=== PATIENT | female | born 1955 | race Caucasian/White ===

== ENCOUNTER 2018-03-27 12:09 | Inpatient (IN) | payer MEDICARE, OTHER ==
[~2018-03-27] VITALS: Ht 162.6 cm; Wt 69.9 kg
[~2018-03-27 12:09] MED LIST: BUPIVACAINE/PF 0.5% ONE; ROCURONIUM 10MG/ML,5ML ONE
[2018-03-27] MEDS ORDERED: LACTATED RINGERS 1,000 ML IV SCH (12:51)
[2018-03-27] MEDS ORDERED: MIDAZOLAM 1 MG/ML, 2ML ONE ×2 (12:54→14:01)
[2018-03-27] MEDS ORDERED: FENTANYL PF 250 MCG/5ML ONE ×3 (12:54→16:26)
[2018-03-27] MEDS ORDERED: BUPIVACAINE/PF 0.5% ONE (13:17)
[2018-03-27] MEDS ORDERED: THROMBIN 20,000 UNIT VIAL TP ONE (13:17)
[2018-03-27] MEDS ORDERED: INDIGO CARMINE 0.8%, 5ML ONE (13:17)
[2018-03-27] MEDS ORDERED: METO25TA35 PO (13:27)
[2018-03-27] MEDS ORDERED: LAMO100T5 PO (13:27)
[2018-03-27] MEDS ORDERED: DULO30CA2 PO (13:27)
[2018-03-27] MEDS ORDERED: ATOR20TA9 PO (13:27)
[2018-03-27] MEDS ORDERED: LISINOPRIL PO (13:27)
[2018-03-27] MEDS ORDERED: FLUO20CA19 PO (13:27)
[2018-03-27 13:28] VITALS: BP 123/74
[2018-03-27] MEDS ORDERED: FUROSEMIDE 20 MG/2 ML ONE (13:40)
[2018-03-27] MEDS ORDERED: MANNITOL PMX 20% 0 ML ONE (13:40)
[2018-03-27] MEDS ORDERED: GABAPENTIN 300 MG CAPSULE PO ONE (14:00)
[2018-03-27] MEDS ORDERED: SCOPOLAMINE PATCH, 1.5MG PATCH.TD72 TD ONE (14:00)
[2018-03-27] MEDS ORDERED: ACETAMINOPHEN 500 MG TABLET PO ONE (14:00)
[2018-03-27] MEDS ORDERED: LIDOCAINE-MPF 2% ,5ML ONE (14:02)
[2018-03-27] MEDS ORDERED: PROPOFOL 10 MG/ML, 20ML ONE (14:02)
[2018-03-27] MEDS ORDERED: THROMBIN 5,000 UNIT VIAL TP ONE (14:04)
[2018-03-27] MEDS ORDERED: CEFAZOLIN 1,000 MG ONE ×2 (14:05)
[2018-03-27] MEDS ORDERED: PHENYLEPHRINE 10 MG/ML ONE (14:05)
[2018-03-27] MEDS ORDERED: hydrALAzine 20 MG/ML, 1ML IV PRN (14:30)
[2018-03-27] MEDS ORDERED: PROMETHAZINE 25 MG/ML, 1ML IV PRN (14:30)
[2018-03-27] MEDS ORDERED: OXYcodone 5 MG/5 ML ORAL.SOL UDC PO PRN (14:30)
[2018-03-27] MEDS ORDERED: HYDROmorphone 1 MG/ML, 1ML IV PRN ×3 (14:30→19:00)
[2018-03-27] MEDS ORDERED: LORazepam 2 MG/ML, 1ML IVPush PRN (14:30)
[2018-03-27] MEDS ORDERED: MEPERIDINE/PF 25MG/0.5ML IVPush PRN (14:30)
[2018-03-27] MEDS ORDERED: FENTANYL PF 100 MCG/2ML IV PRN (14:30)
[2018-03-27] MEDS ORDERED: HALOPERIDOL 5 MG/ML IV PRN (14:30)
[2018-03-27] MEDS ORDERED: LABETALOL 5MG/ML, 20ML IV PRN (14:30)
[2018-03-27] MEDS ORDERED: DEXAMETHASONE 4 MG/ML, 1ML ONE ×2 (14:50)
[2018-03-27] MEDS ORDERED: BUPIVACAINE 0.25% INFIL ONE (15:52)
[2018-03-27] MEDS ORDERED: EPINEPHRINE 1 MG/ML, 1ML INFIL ONE (15:53)
[2018-03-27] MEDS ORDERED: hydrALAzine 20 MG/ML, 1ML ONE (18:08)
[2018-03-27 18:50] VITALS: BP 132/78
[2018-03-27] MEDS ORDERED: ACETAMINOPHEN 650 MG SUPP PR PRN (19:00)
[2018-03-27] MEDS ORDERED: LORazepam 2 MG/ML, 1ML IV PRN (19:00)
[2018-03-27] MEDS ORDERED: ACETAMINOPHEN 325 MG TABLET PO PRN (19:00)
[2018-03-27] MEDS: CEFAZOLIN PMX 1GM/50ML 50 ML IVPB SCH (20:05)
[2018-03-27] MEDS: ATORVASTATIN 20 MG TABLET PO SCH ×2 (21:00→21:19)
[2018-03-28 01:25] VITALS: BP 126/79
[2018-03-28] MEDS: POTASSIUM CHLORIDE 10 MEQ in D5%-0.45% NACL 1,000 ML IV SCH ×3 (02:20→19:28)
[2018-03-28] MEDS: CEFAZOLIN PMX 1GM/50ML 50 ML IVPB SCH (03:49)
[2018-03-28] MEDS: OXYcodone/APAP 5/325MG TABLET PO PRN ×4 (03:55→23:41)
[2018-03-28] MEDS: METOPROLOL TARTRATE 25 MG TABLET PO SCH ×2 (06:09→18:17)
[2018-03-28] MEDS: ENOXAPARIN 40 MG/0.4 ML SQ SCH (06:09)
[2018-03-28 06:44] VITALS: BP 124/74
[2018-03-28] MEDS: LAMOTRIGINE 100 MG TABLET PO SCH (08:40)
[2018-03-28] MEDS: DULOXETINE 30 MG CAPSULE.DR PO SCH (08:40)
[2018-03-28] MEDS: LISINOPRIL 10 MG TABLET PO SCH (08:40)
[2018-03-28] MEDS: FLUOXETINE HCL 20 MG CAPSULE PO SCH (08:40)
[2018-03-28 14:02] VITALS: BP 119/70
[2018-03-28] MEDS: ONDANSETRON 2MG/ML, 2ML IV PRN (14:05)
[2018-03-28] MEDS: CALCIUM CARBONATE 500 MG TAB.CHEW PO PRN (16:28)
[2018-03-28 18:38] VITALS: BP 98/62
[2018-03-28] MEDS: ATORVASTATIN 20 MG TABLET PO SCH (20:55)
[2018-03-29 01:27] VITALS: BP 92/57
[2018-03-29] MEDS: POTASSIUM CHLORIDE 10 MEQ in D5%-0.45% NACL 1,000 ML IV SCH ×2 (03:33→15:33)
[2018-03-29] MEDS: METOPROLOL TARTRATE 25 MG TABLET PO SCH ×3 (06:00→18:00)
[2018-03-29] MEDS: ENOXAPARIN 40 MG/0.4 ML SQ SCH (06:24)
[2018-03-29 06:37] VITALS: BP 95/58
[2018-03-29 08:34] VITALS: BP 110/72
[2018-03-29] MEDS: LISINOPRIL 10 MG TABLET PO SCH (09:00)
[2018-03-29] MEDS: DULOXETINE 30 MG CAPSULE.DR PO SCH (09:09)
[2018-03-29] MEDS: FLUOXETINE HCL 20 MG CAPSULE PO SCH (09:09)
[2018-03-29] MEDS: LAMOTRIGINE 100 MG TABLET PO SCH (09:09)
[2018-03-29] MEDS: OXYcodone/APAP 5/325MG TABLET PO PRN ×3 (09:16→18:09)
[2018-03-29] MEDS ORDERED: OMEPRAZOLE 10 MG CAPSULE.DR ONE (09:23)
[2018-03-29] MEDS: OMEPRAZOLE 10 MG CAPSULE.DR PO SCH (09:24)
[2018-03-29 14:28] VITALS: BP 93/58
[2018-03-29 18:11] VITALS: BP 117/71
[2018-03-29] MEDS: ATORVASTATIN 20 MG TABLET PO SCH (20:03)
[2018-03-29] MEDS: LORazepam 1MG TABLET PO PRN (20:03)
[2018-03-29 20:23] VITALS: BP 109/70
[2018-03-30 02:11] VITALS: BP 120/72
[2018-03-30] MEDS: POTASSIUM CHLORIDE 10 MEQ in D5%-0.45% NACL 1,000 ML IV SCH (02:28)
[2018-03-30] MEDS: ONDANSETRON 2MG/ML, 2ML IV PRN (02:49)
[2018-03-30] MEDS: LORazepam 1MG TABLET PO PRN (02:49)
[2018-03-30 05:43] LABS: CREATININE 1.35 mg/dL (0.55-1.02)
[2018-03-30] MEDS: METOPROLOL TARTRATE 25 MG TABLET PO SCH ×2 (06:17→18:22)
[2018-03-30] MEDS: ENOXAPARIN 40 MG/0.4 ML SQ SCH (06:17)
[2018-03-30 07:00] VITALS: BP 156/81
[2018-03-30] MEDS: LISINOPRIL 10 MG TABLET PO SCH (08:23)
[2018-03-30] MEDS: DULOXETINE 30 MG CAPSULE.DR PO SCH (08:24)
[2018-03-30] MEDS: LAMOTRIGINE 100 MG TABLET PO SCH (08:24)
[2018-03-30] MEDS: FLUOXETINE HCL 20 MG CAPSULE PO SCH (08:24)
[2018-03-30] MEDS: OMEPRAZOLE 10 MG CAPSULE.DR PO SCH (08:24)
[2018-03-30] MEDS: OXYcodone/APAP 5/325MG TABLET PO PRN ×2 (08:24→18:23)
[2018-03-30 12:48] VITALS: BP 132/81
[2018-03-30 12:57] LABS: CHLORIDE 108 mmol/L (98-107)
[2018-03-30 12:58] LABS: ALANINE AMINOTRANSFERASE 74 U/L (12-78); ANION GAP 5 mmol/L (5-15); CALCIUM 8.5 mg/dL (8.5-10.1); CREATININE 1.28 mg/dL (0.55-1.02)
[2018-03-30 13:00] LABS: ALKALINE PHOSPHATASE 95 U/L (45-117); BILIRUBIN,TOTAL 0.8 mg/dL (0.2-1.0); TOTAL PROTEIN 6.3 g/dL (6.4-8.2)
[2018-03-30 20:06] VITALS: BP 120/72
[2018-03-30] MEDS: ATORVASTATIN 20 MG TABLET PO SCH (21:30)
[2018-03-31 02:13] VITALS: BP 126/72
[2018-03-31] MEDS: ENOXAPARIN 40 MG/0.4 ML SQ SCH (06:12)
[2018-03-31] MEDS: METOPROLOL TARTRATE 25 MG TABLET PO SCH ×2 (06:12→17:27)
[2018-03-31] MEDS: OXYcodone/APAP 5/325MG TABLET PO PRN ×3 (06:12→21:24)
[2018-03-31 07:38] VITALS: BP 131/73
[2018-03-31] MEDS: LAMOTRIGINE 100 MG TABLET PO SCH (07:54)
[2018-03-31] MEDS: FLUOXETINE HCL 20 MG CAPSULE PO SCH (07:55)
[2018-03-31] MEDS: OMEPRAZOLE 10 MG CAPSULE.DR PO SCH (07:55)
[2018-03-31] MEDS: DULOXETINE 30 MG CAPSULE.DR PO SCH (07:55)
[2018-03-31] MEDS: LISINOPRIL 10 MG TABLET PO SCH (07:58)
[2018-03-31] MEDS: CALCIUM CARBONATE 500 MG TAB.CHEW PO PRN (12:05)
[2018-03-31 13:06] VITALS: BP 149/76
[2018-03-31 19:34] VITALS: BP 143/77
[2018-03-31] MEDS: ATORVASTATIN 20 MG TABLET PO SCH (21:24)
[2018-04-01 02:37] VITALS: BP 104/61
[2018-04-01] MEDS: ENOXAPARIN 40 MG/0.4 ML SQ SCH (05:46)
[2018-04-01] MEDS: METOPROLOL TARTRATE 25 MG TABLET PO SCH (05:46)
[2018-04-01] MEDS ORDERED: OMEPRAZOLE 10 MG CAPSULE.DR PO SCH (07:30)
[2018-04-01 08:10] VITALS: BP 149/81
[2018-04-01] MEDS: LAMOTRIGINE 100 MG TABLET PO SCH (08:17)
[2018-04-01] MEDS: LISINOPRIL 10 MG TABLET PO SCH (08:17)
[2018-04-01] MEDS: FLUOXETINE HCL 20 MG CAPSULE PO SCH (08:17)
[2018-04-01] MEDS: DULOXETINE 30 MG CAPSULE.DR PO SCH (08:17)
[2018-04-01 08:38] VITALS: BP 157/63
[2018-04-01] MEDS: OXYcodone/APAP 5/325MG TABLET PO PRN (10:41)
[2018-04-01 12:46] VITALS: BP 138/83
== END 2018-04-01 15:07 | disposition home or self-care (01) | DRG 656 ==
LOC: EDSEX 12:09 → OUT 12:09 → 4NOR 18:40 → OUT 18:43 → DCLOUNGE 04-01 14:44
PROVIDERS: ADMIT Urology; ATTEND Urology
PROC: 0WQF4ZZ Repair Abdominal Wall, Percutaneous Endoscopic Approach (ICD-10-PCS; 2018-03-27)
PROC: 8E0W4CZ Robotic Assisted Procedure of Trunk Region, Percutaneous Endoscopic Approach (ICD-10-PCS; 2018-03-27)
PROC: 0TT04ZZ Resection of Right Kidney, Percutaneous Endoscopic Approach (ICD-10-PCS; 2018-03-27)
PROC: 0DNK4ZZ Release Ascending Colon, Percutaneous Endoscopic Approach (ICD-10-PCS; principal; 2018-03-27 13:30)
DX: C64.1 Malignant neoplasm of right kidney, except renal pelvis (principal); N17.0 Acute kidney failure with tubular necrosis; E44.1 Mild protein-calorie malnutrition; K66.0 Peritoneal adhesions (postprocedural) (postinfection); K21.9 Gastro-esophageal reflux disease without esophagitis; Z90.49 Acquired absence of other specified parts of digestive tract; K43.9 Ventral hernia without obstruction or gangrene; F32.9 Major depressive disorder, single episode, unspecified; I10 Essential (primary) hypertension; E78.00 Pure hypercholesterolemia, unspecified; Z90.710 Acquired absence of both cervix and uterus; Z90.722 Acquired absence of ovaries, bilateral
CPT/HCPCS: 36415; 80053; 82565; 86850; 86900; 88302; 88307; 93005; C1729; J0171; J0690; J1100; J1650; J2250; J2405; J2704; J3010; J3480; J3490; C1760; J0360; J1940; J2370; J7120

== ENCOUNTER → 2018-04-24 | Outpatient (CLI) | payer MEDICARE, OTHER ==
[~2018-04-24] MED LIST changes: +ATOR20TA9 PO; -BUPIVACAINE/PF 0.5% ONE; +DULO30CA2 PO; +FLUO20CA19 PO; +LAMO100T5 PO; +LISINOPRIL PO; +METO25TA35 PO; -ROCURONIUM 10MG/ML,5ML ONE
[2018-04-24 09:57] LABS: BASOPHILS # (AUTO) 0.04 x10^3/uL (0-0.1); BASOPHILS % (AUTO) 1 % (0-1); EOSINOPHILS # (AUTO) 0.43 x10^3/uL (0-0.4); EOSINOPHILS % (AUTO) 6 % (1-7); LYMPHOCYTES # (AUTO) 1.43 x10^3/uL (1-3.4); LYMPHOCYTES % (AUTO) 20 % (22-44); MD NO; MEAN CORPUSCULAR HEMOGLOBIN 28.4 pg (27.0-34.8); MEAN CORPUSCULAR VOLUME 86.3 fL (80-100); MEAN PLATELET VOLUME 6.9 fL (7.4-10.4); MONOCYTES # (AUTO) 0.59 x10^3/uL (0.2-0.8); MONOCYTES % (AUTO) 8 % (2-9); NEUTROPHILS % (AUTO) 66 % (42-75); PLATELET COUNT 324 x10^3/uL (130-400); RED BLOOD COUNT 4.43 x10^6/uL (3.82-5.3); RED CELL DISTRIBUTION WIDTH 13.8 % (9.6-15.2)
[2018-04-24 09:58] LABS: ALBUMIN 3.6 g/dL (3.4-5.0); ANION GAP 9 mmol/L (5-15); CALCIUM 9.2 mg/dL (8.5-10.1); CHLORIDE 105 mmol/L (98-107); CREATININE 1.71 mg/dL (0.55-1.02)
[2018-04-24 10:08] LABS: ALANINE AMINOTRANSFERASE 22 U/L (12-78); ALKALINE PHOSPHATASE 107 U/L (45-117); BILIRUBIN,TOTAL 0.4 mg/dL (0.2-1.0); TOTAL PROTEIN 7.9 g/dL (6.4-8.2)
== END | disposition home or self-care (01) ==
LOC: LAB 09:31
PROVIDERS: ATTEND Urology
DX: Z48.816 Encounter for surgical aftercare following surgery on the genitourinary system (principal); D49.511 Neoplasm of unspecified behavior of right kidney
CPT/HCPCS: 36415; 80053; 85025

== ENCOUNTER → 2018-08-19 | Outpatient (CLI) | payer MEDICARE, OTHER ==
[~2018-08-19] MED LIST changes: +ATOR20TA37 PO; -ATOR20TA9 PO
[2018-08-19 13:02] LABS: CALCIUM 9.1 mg/dL (8.5-10.1); CHLORIDE 103 mmol/L (98-107)
[2018-08-19 13:06] LABS: ALANINE AMINOTRANSFERASE 22 U/L (12-78); ALBUMIN 3.7 g/dL (3.4-5.0); ALKALINE PHOSPHATASE 113 U/L (45-117); ANION GAP 7 mmol/L (5-15); BILIRUBIN,TOTAL 0.4 mg/dL (0.2-1.0); CREATININE 1.28 mg/dL (0.55-1.02); TOTAL PROTEIN 7.6 g/dL (6.4-8.2)
== END | disposition home or self-care (01) ==
LOC: CFH 09:41
PROVIDERS: ATTEND Urology
DX: C64.9 Malignant neoplasm of unspecified kidney, except renal pelvis (principal); Z90.5 Acquired absence of kidney
CPT/HCPCS: 36415; 71046; 76770; 80053

== ENCOUNTER 2019-03-24 08:55 | Outpatient (CLI) | payer MEDICARE, OTHER | END 2019-03-24 23:59 | disposition home or self-care (01) | LOC: RAD 08:55 | PROVIDERS: ATTEND Urology | DX: N28.1 Cyst of kidney, acquired (principal); R91.8 Other nonspecific abnormal finding of lung field; N18.9 Chronic kidney disease, unspecified; Z90.5 Acquired absence of kidney; Z85.528 Personal history of other malignant neoplasm of kidney | CPT/HCPCS: 71046; 72197; 74183; A9585; J1940 ==